=== PATIENT | male | born 1975 ===

== ENCOUNTER 2022-11-25 08:12 | Day surgery (SDC) | payer OTHER ==
[2022-11-24 14:18] VITALS: BMI 35.2
[2022-11-25] MEDS ORDERED: PROPOFOL 200 MG/20 ML VIAL ONE (11:00)
== END 2022-11-25 12:26 | disposition home or self-care (01) ==
LOC: SDC 08:12
PROVIDERS: ATTEND Internal Medicine Gastroenterology
PROC: 0DBL8ZZ Excision of Transverse Colon, Via Natural or Artificial Opening Endoscopic (ICD-10-PCS; principal; 2022-11-25)
PROC: 0DB58ZX Excision of Esophagus, Via Natural or Artificial Opening Endoscopic, Diagnostic (ICD-10-PCS; principal; 2022-11-25)
DX: Z12.11 Encounter for screening for malignant neoplasm of colon (principal); K63.5 Polyp of colon; K20.0 Eosinophilic esophagitis; K57.10 Diverticulosis of small intestine without perforation or abscess without bleeding; K22.89 Other specified disease of esophagus; Z90.49 Acquired absence of other specified parts of digestive tract
CPT/HCPCS: 88305; 88312; 88313; J2704